=== PATIENT | male | born 1980 | race Caucasian/White ===

== ENCOUNTER 2019-08-29 12:22 | Day surgery (SDC) | payer MEDICARE, SELFPAY ==
[2019-08-29] MEDS ORDERED: Acetaminophen 325 MG TAB PO SCH (16:30)
[2019-08-29 21:44] VITALS: BP 130/74; TEMP 98.6
== END 2019-08-29 21:12 | disposition home or self-care (01) ==
LOC: ONC/OP 12:22 → ONC 12:30 → ONC/OP 21:12
PROVIDERS: ATTEND Nurse Practitioner Family
PROC: 30233N1 Transfusion of Nonautologous Red Blood Cells into Peripheral Vein, Percutaneous Approach (ICD-10-PCS; principal; 2019-08-29)
DX: D64.9 Anemia, unspecified (principal); Z87.19 Personal history of other diseases of the digestive system; Z88.8 Allergy status to other drugs, medicaments and biological substances
CPT/HCPCS: 36415; 36430; 86850; 86900; 86901; P9016

== ENCOUNTER 2019-11-13 08:56 | Emergency (ER) | payer MEDICARE ==
[2019-11-13 09:45] LABS: #Eosinphils 0.1 thou/uL (0.0-0.7); #Lymphocytes 0.6 thou/uL (1.20-3.40); #Monocytes 0.5 thou/uL (0.11-0.59); #Neutrophils 4.8 thou/uL (1.40-6.50); %Basophils 0.8 % (0.0-1.0); %Eosinophils 1.8 % (0.0-10.0); %Lymphocytes 10.1 % (21.0-51.0); %Monocytes 8.7 % (0.0-10.0); %Neutrophils 78.6 % (42.0-75.0); Hemoglobin 9.5 g/dL (14.0-18.0); Mean Corpuscular HGB CONC 28.6 g/dL (32.0-36.0); Mean Corpuscular Volume 66.4 fL (78.0-98.0); Mean Platelet Volume 9.7 fL (7.4-10.4); Platelet Count 679 thou/uL (130-400); RBC Distribution Width 20.4 % (11.5-14.5); White Blood Cell (WBC) Count 6.1 thou/uL (4.8-10.8)
[2019-11-13 10:02] LABS: Hypochromia MODERATE=16-30 cells (100X) (0-5/hpf); MDiff Complete? YES; Microcytosis MODERATE=15-30 cells (100X) (0-5/hpf); Platelet Morphology Comment Appears Increased; Polychromasia MODERATE = 3-4 cells (100X) (0-2/hpf); Reflex for Review?? YES; Target Cells SLIGHT = 2-5 cells (100X) (0-1/hpf)
[2019-11-13] MEDS ORDERED: Ondansetron PF 4 MG/2 ML Vial ONE (10:12)
[2019-11-13] MEDS ORDERED: Fentanyl 100 MCG/2 ML VIAL ONE (10:12)
[2019-11-13] MEDS ORDERED: Pantoprazole 80 MG, Admixture Fee 1 EACH in Sodium Chloride 0.9% 100 ML IVPB SCH (10:15)
[2019-11-13 11:16] LABS: Albumin 3.2 g/dL (3.5-5.0)
[2019-11-13 11:17] LABS: Chloride 108 mmol/L (98-107); Potassium 4.1 mmol/L (3.5-5.1); Sodium 138 mmol/L (136-145)
[2019-11-13 11:18] LABS: Calcium 8.2 mg/dL (7.8-10.44); Glucose 86 mg/dL (70-105)
[2019-11-13 11:19] LABS: Globulin 3.7 g/dL (2.4-3.5); Protein, Total 6.9 g/dL (6.0-8.3)
[2019-11-13 11:20] LABS: Anion Gap 14 mmol/L (10-20); Bilirubin, Total 0.2 mg/dL (0.2-1.2); Carbon Dioxide 20 mmol/L (22-29)
[2019-11-13 11:21] LABS: Alkaline Phosphatase 65 U/L (40-110)
[2019-11-13 11:22] LABS: BUN (Urea Nitrogen) 9 mg/dL (8.9-20.6); Calc. Creatinine Clearance 0 mL/min (70-130); Estimated GFR-MDRD Greater than 90
[2019-11-13 11:23] LABS: AST (SGOT) 10 U/L (5-34)
[2019-11-13 11:24] LABS: ALT (SGPT) Less than 7 U/L (8-55)
== END 2019-11-13 11:59 | disposition home or self-care (01) ==
LOC: ERS 08:56
DX: K50.90 Crohn's disease, unspecified, without complications (principal); D64.9 Anemia, unspecified; F41.9 Anxiety disorder, unspecified; F17.210 Nicotine dependence, cigarettes, uncomplicated
CPT/HCPCS: 36415; 80053; 85025; 85060; 86850; 86900; 86901; 96361; 96365; 96375; C9113; J2405; J3010; J3490